=== PATIENT | female | born 1935 | race Hispanic/Latino ===

== ENCOUNTER 2017-10-17 07:53 | Observation (INO) | payer MEDICARE ==
[~2017-10-17 07:53] MED LIST: ANCEF ONE; ANTIBIOTIC OINT TP ONE; BACITRACIN ONE; CELESTONE SOLUSPAN IM ONE; MARCAINE 0.5% INFILTRATI ONE; NACL P/F VIAL (10 ML) 10 ML ONE; OMNIPAQUE 300 MG/50 ML (CATH LAB) IV ONE; XYLOCAINE 1% 20 mL INFILTRATI ONE; XYLOCAINE 1% 20 mL ONE
--- NOTE | 2017-10-17 08:38 | Anesthesia Consultation ---
Anesthesia Consult and Med Hx Date of service: 10/17/17 - Airway Anesthetic Teeth Evaluation: Good, Partials ROM Head & Neck: Adequate Mental/Hyoid Distance: Adequate Mallampati Class: Class II Intubation Access Assessment: Probably Good - Pulmonary Exam CTA: Yes - Cardiac Exam Cardiac Exam: RRR - Pre-Operative Health Status ASA Pre-Surgery Classification: ASA3 Proposed Anesthetic Plan: General - Pulmonary Hx Smoking: Yes (STOPPED X 15 YRS- 1 PPD X 25 YRS) SOB: Yes (SOB) COPD: Yes (INHALERS PRN , DAILY STEROIDS) Hx Pneumonia: Yes (RESOLVED) Hx Sleep Apnea: No (DENA PRE SCREEN HIGH RISK) - Cardiovascular System Hx Hypertension: Yes (X 10 YRS) Hx Coronary Artery Disease: Yes Hx Heart Attack/AMI: No Hx Angina: No Hx Percutaneous Transluminal Coronary Angioplasty (PTCA): No Hx Cardia Arrhythmia: No Hx Pacemaker: No Hx Internal Defibrillator: No Hx Valvular Heart Disease: No Hx Heart Murmur: No Hx Peripheral Vascular Disease: No - Central Nervous System 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
[2017-10-17] MEDS ORDERED: METHYLENE BLUE ONE (08:44)
[2017-10-17] MEDS ORDERED: NACL ONE (08:45)
[2017-10-17] MEDS ORDERED: VERSED IV NR (09:00)
[2017-10-17] MEDS ORDERED: LACTATED RINGERS 1,000 ML IV SCH (09:00)
[2017-10-17] MEDS ORDERED: XYLOCAINE MPF 2% ONE ×2 (09:01→09:03)
[2017-10-17] MEDS ORDERED: QUELICIN ONE (09:02)
[2017-10-17] MEDS ORDERED: DIPRIVAN 10 MG/ML IV ONE ×3 (09:03)
[2017-10-17] MEDS ORDERED: DILAUDID ONE (09:15)
--- NOTE | 2017-10-17 09:30 | Anesthesia Day of Surgery ---
Anesthesia Day of Surgery - Day of Surgery Patient Examined: Yes Patient H&P Reviewed: Yes Patient is NPO: Yes Beta Blockers: Yes Pulmonary Clearance: Yes
--- NOTE | 2017-10-17 09:38 | Short Stay Summary ---
Short Stay Documentation Date of service: 10/15/17 Narrative H&P: 81-year-old female with history of severe osteoporosis and multiple pathologic compression fractures. Patient underwent vertebral augmentation for treatment of senile burst fracture of L1, with resultant bone cement leakage on right into the ventral epidural space and right neural foramen resulting in severe compression of the right L1 nerve root. Patient is undergone multiple injections without sustained pain relief. She is poorly tolerant of opioid pain medications. Pain is been intractable and severe. She now presents for minimally invasive right L1-2 foraminotomy were right L1 nerve root decompression. - History Principal diagnosis: lumbar spinal stenosis at L1-2 with severe right neural foraminal stenosis H&P: obtained from office Past Medical History: COPD, GERD, hypertension Past Surgical History: cholecystectomy, Other (Vertebral augmentation of T12, L1 and L2) Social history: - Allergies and Medications Current Medications: Allergies No Known Allergies Allergy (Verified 08/29/17 10:30) Home Medications Medication Instructions Recorded Confirmed Last Taken Type Aspirin EC [Aspirin Enteric Coated 81 mg PO QDAY 08/29/17 10/15/17 Unknown History TAB] ALPRAZolam [Xanax TAB] 0.25 mg PO TID PRN 09/10/17 10/15/17 Unknown History Amlodipine Besylate [Norvasc] 5 mg PO DAILY 09/10/17 10/15/17 Unknown History Arformoterol Nebu [Brovana Nebu] 15 mcg IH Q12HR 09/10/17 10/15/17 Unknown History Budesonide [Pulmicort] 0.25 mg IH Q12HR 09/10/17 10/15/17 Unknown History Carvedilol [Coreg] 12.5 mg PO BID 09/10/17 10/15/17 Unknown History Citalopram [celeXA] 20 mg PO QDAY 09/10/17 10/15/17 Unknown History Duloxetine HCl [Cymbalta] 60 mg PO DAILY 09/10/17 10/15/17 Unknown History Ipratropium [Atrovent] 0.5 mg IH Q8HRT 09/10/17 10/15/17 Unknown History Lansoprazole [Prevacid] 30 mg PO BID 09/10/17 10/15/17 Unknown History Meclizine [Antivert] 12.5 mg PO BID PRN 09/10/17 10/15/17 Unknown History Ondansetron [Zofran TAB] 4 mg PO Q8HR PRN 09/10/17 10/15/17 Unknown History Prednisone [predniSONE (Brenda) ER 5 mg PO QDAY 09/10/17 10/15/17 Unknown History TAB] Sucralfate [Carafate] 2 gm PO BID 09/10/17 10/15/17 Unknown History Vit A/Vit C/Vit E/Zinc/Copper 1 each PO DAILY 09/10/17 10/15/17 Unknown History [Icaps Areds Formula Tablet] cloNIDine [Catapres] 0.1 mg PO PRN PRN 09/10/17 10/15/17 Unknown History oxyCODONE [Roxicodone] 5 mg PO QID 09/10/17 10/15/17 Unknown History Active Medications Lactated Ringer's (Lactated Ringers) 1,000 mls @ 75 mls/hr IV DIRECT SRINATH Last Admin: 10/17/17 09:12 Dose: 75 mls/hr Midazolam HCl (Versed) 2 mg IV PREOP NR Stop: 10/17/17 23:59 Last Admin: 10/17/17 09:24 Dose: 1 mg - Physical exam General appearance: no acute distress HEENT: Atraumatic, PERRLA, EOMI Lungs: Clear to auscultation Breasts: deferred Heart: Regular rate, No murmurs Gastrointestinal: normal Female Genitourinary: deferred Rectal Exam: deferred Extremities: no ischemia, pulses intact, No edema Neurological: Normal speech, Strength at 5/5 X4 ext (right iliopsoas strength 3/ 5), Normal tone, Sensation intact (my decrease sensation to light touch and right L1 dermatome), Cranial nerves 3-12 NL - Brief post op/procedure progress note Date of procedure: 10/17/17 Pre-op diagnosis: lumbar spinal stenosis L1-2 w/o neurogenic claudication; right L1 radiculop Post-op diagnosis: same Anesthesia: GETA Estimated blood loss: other (10 mL) Pathology: none Condition: stable Short Stay Discharge Plan Follow up with: AISHA MAO [Primary Care Provider] - 7 Days
[2017-10-17] MEDS ORDERED: ANCEF/STERILE WATER 2 GM/20 ML IV NR (09:40)
[2017-10-17] MEDS ORDERED: ePHEDrine SULFATE ONE (10:03)
[2017-10-17] MEDS ORDERED: AMIDATE IV ONE (11:11)
[2017-10-17] MEDS ORDERED: BACITRACIN IR ONE (11:11)
[2017-10-17] MEDS ORDERED: DECADRON ONE (12:18)
[2017-10-17] MEDS ORDERED: CELESTONE SOLUSPAN IM ONE ×2 (14:14→15:30)
[2017-10-17] MEDS ORDERED: OMNIPAQUE 300 MG/50 ML (CATH LAB) IV ONE (15:30)
[2017-10-17] MEDS ORDERED: XYLOCAINE 1% 20 mL INFILTRATI ONE (15:30)
[2017-10-17] MEDS ORDERED: MARCAINE 0.5% INFILTRATI ONE (15:30)
[2017-10-17] MEDS ORDERED: ZOFRAN PO PRN (16:28)
[2017-10-17] MEDS ORDERED: XANAX PO PRN (16:28)
[2017-10-17] MEDS: DILAUDID IV PRN ×4 (16:46→17:24)
[2017-10-17] MEDS ORDERED: CATAPRES PO PRN (16:49)
[2017-10-17] MEDS ORDERED: ATROVENT IH ONE (16:59)
[2017-10-17] MEDS ORDERED: NORVASC PO SCH (17:00)
--- NOTE | 2017-10-17 18:28 | Post Anesthesia Evaluation ---
- Post Anesthesia Evaluation Patient Participated: Yes Airway Patent: Yes Stable Respiratory Function: Yes Nausea/Vomiting: No Temp > 96.8F: Yes Pain Manageable: Yes Adequeate Hydration: Yes Anesthesia Complications: No Block Receding Appropriately: Not Applicable
[2017-10-17] MEDS: ROXICODONE PO SCH (19:44)
[2017-10-17] MEDS: PULMICORT IH SCH (21:00)
[2017-10-17] MEDS: BROVANA NEBU IH SCH (21:01)
[2017-10-17] MEDS ORDERED: PROTONIX PO SCH (22:00)
[2017-10-17] MEDS: CARAFATE PO SCH (22:44)
[2017-10-17] MEDS: COREG PO SCH (22:48)
[2017-10-18] MEDS: BROVANA NEBU IH SCH (08:59)
[2017-10-18] MEDS: PULMICORT IH SCH ×2 (08:59→14:19)
[2017-10-18] MEDS: COREG PO SCH (09:25)
[2017-10-18] MEDS: CARAFATE PO SCH (09:25)
[2017-10-18] MEDS: ROXICODONE PO SCH ×2 (09:26)
[2017-10-18] MEDS ORDERED: CYMBALTA PO SCH (10:00)
[2017-10-18] MEDS ORDERED: HALFPRIN EC PO SCH (10:00)
[2017-10-18] MEDS ORDERED: celeXA PO SCH (10:00)
--- NOTE | 2017-10-18 10:36 | XRay Report ---
AP AND LATERAL LUMBOSACRAL SPINE: History: Spinal stenosis. AP and lateral fluoroscopic images of the thoracolumbar region were obtained during surgery. Advanced multilevel degenerative changes and mild scoliosis are evident. Kyphoplasty changes are suspected from levels T11-L1. Foraminotomy was performed at L1-2. Please correlate with procedural report. IMPRESSION: Scoliosis and degenerative changes. Surgical changes as described.
[2017-10-18 11:49] VITALS: BP 118/54
--- NOTE | 2017-10-18 13:41 | Progress Note ---
Assessment and Plan 1. Discharge to home under her care of patient's daughters. 2. Continue oxycodone 5 mg every 6 hours as needed for pain. 3. Begin prednisone 10 mg by mouth for 10 days then decrease to 5 mg daily. 4. Neurontin 100 mg 3 times a day. 5. Follow-up in office in 10 days. - Patient Problems (1) Lumbar canal stenosis Current Visit: Yes Status: Acute Qualifiers: Neurogenic claudication status: with neurogenic claudication Qualified Code (s): M48.062 - Spinal stenosis, lumbar region with neurogenic claudication (2) Lumbar radiculopathy, chronic Current Visit: Yes Status: Acute Subjective Date of service: 10/18/17 Principal diagnosis: lumbar spinal stenosis at L1-2 with severe right neural foraminal stenosis Interval history: The patient is postop day 1 following right L1-2 foraminotomy. She reports pain involving her right inguinal region and upper right thigh, in the same location as her pain preoperatively however she states the character is different. She has been up and ambulating with assistance with the physical therapist today. She denies any leg pain, numbness or weakness. No headaches, nausea or vomiting. Objective - Constitutional Vitals: Vital Signs - 12hr 10/18/17 10/18/17 10/18/17 03:48 05:55 07:41 Temperature 97.6 F 99.1 F Pulse Rate 89 89 Respiratory 20 20 20 Rate Blood Pressure 158/88 149/85 Blood Pressure 148/71 [Right] O2 Sat by Pulse 95 95 Oximetry 10/18/17 10/18/17 09:25 11:48 Temperature 98.0 F Pulse Rate 86 Respiratory 20 Rate Blood Pressure 148/71 Blood Pressure 118/54 [Right] O2 Sat by Pulse 95 Oximetry General appearance: Present: no acute distress - EENT Eyes: PERRL (mild lid edema on the right.) - Neck Neck: supple, normal ROM - Respiratory Respiratory effort: normal - Cardiovascular Rhythm: regular Extremities: no ischemia, No edema, abnormal (mild swelling of left forearm at site of previous IV that was removed following infiltration) - Gastrointestinal General gastrointestinal: Present: deferred - Genitourinary Female genitourinary: deferred - Musculoskeletal Musculoskeletal: strength equal bilaterally - Neurologic Neurologic: CNII-XII intact, moves all extremities - Psychiatric Psychiatric: appropriate mood/affect - Allied health notes Allied health notes reviewed: case management (arrangements to be made for home health physical therapy.)
[2017-10-18] MEDS ORDERED: ATROVENT IH SCH ×3 (14:00→17:00)
--- NOTE | 2017-10-18 14:32 | Operative Report ---
Operative Report Operative Report: Preoperative Diagnoses: 1. Chronic axial low back pain. 2. Chronic Lumbar radiculopathy. 3. Lumbar spinal stenosis and neurogenic claudication Postoperative diagnosis: 1. Chronic axial low back pain. 2. Chronic Lumbar radiculopathy. 3. Lumbar spinal stenosis and neurogenic claudication Procedure: 1. Minimally invasive right L1-2 foraminotomy. 2. Decompression of central spinal stenosis and lateral recess stenosis on the right. 3. Right L1-2 transforaminal epidural corticosteroid injection. Surgeon: Derrek Escobedo Anesthesia: General endotracheal. Estimated blood loss: 15 mL Complications: None. Neuromonitoring: Continuous SSEP and EMG neuromonitoring was performed with intermittent MEP. Indication: The patient is a 81-year-old female with osteoporosis and multiple pathologic compression fractures. History of T12 senile burst fracture treated with vertebral augmentation resulting in bone cement extravasation on the right and to the lateral recess and right L1 to 2 neural foramen resulting in right L1 nerve root compression. Patient has chronic spinal stenosis at L1 S2 with neurogenic claudication and chronic right L1 radiculopathy. She presents for minimally invasive right L1-2 foraminotomy. Performed procedure: Following informed consent, the patient was brought to the operative suite and general endotracheal anesthesia was induced. Neuro monitoring leads were applied to the lower extremities laterally. EMG, SSEP and MEP neuro monitoring was performed throughout the procedure. The patient was then carefully turned onto the operative table in the prone position. All pressure points were meticulously padded. She received 2 g of cefazolin intravenously for antibiotic prophylaxis. The back was sterilely prepped and draped in routine fashion. Attention was initially turned to the upper lumbar spine at L1. Fluoroscopy revealed chronic compression fractures of T12, L1 and L2 with posterior bone displacement into the central canal at L1 along with methylmethacrylate extravasation on the right, extending into the neural foramen. A skin incision was made with a #15 blade. A tract was then dilated to the lateral aspect of the right L1 S2 neural foramen and a tubular retractor was placed allowing for direct visualization. Moderate fibrotic tissue was encountered and removed. This allowed for visualization of methylmethacrylate extending into the foramen. The foramen was found to be severely stenotic. Following control bleeding with bipolar electrocautery, with endoscopic assistance, the high-speed chelsey tipped drill was utilized and the bone cement was carefully drilled out, with the further on and bone cement removal within the lateral aspect of the central canal taking care to avoid contact with the dura. Attention was then asked turned toward the superior aspect of the neural foramen. The L1 nerve root was visualized and noted to be discolored consistent with chronic inflammation and irritation secondary to compression. Due to the proximity of the bone cement adjacent to the L1 nerve root, great care was taken to avoid any direct contact with the nerve root. The foramen was inspected and appeared to be satisfactorily decompressed. Additional hemostatic material was placed into the bony defect and hemostasis was obtained and found to be satisfactory. This was followed by removal of the instrumentation and placement of a 18-gauge needle into the neural foramen under fluoroscopic visualization. Aspiration was negative for blood and CSF. Contrast was injected to confirm position. This is followed by injection of 12 mg of betamethasone mixed with 2 mL of 0.5% bupivacaine without epinephrine. The needle was withdrawn. The skin incision was then closed with interrupted subcutaneous 3-0 Vicryl sutures and Dermabond was applied as a skin sealant. Sterile dressing was applied. No abnormal activity was identified during the procedure with continuous neuro monitoring as detailed above. The patient was then carefully removed to a gurney, extubated and taken to the recovery room where she was noted to be in stable cardiopulmonary neurologic condition. Disposition: The patient was admitted for 23 observation for postoperative pain control.
== END 2017-10-18 14:18 | disposition home health service (06) ==
LOC: OR 07:53 → 3B-SURG 16:24
PROVIDERS: ADMIT Radiology Diagnostic Radiology; ATTEND Radiology Diagnostic Radiology
DX: M48.062 Spinal stenosis, lumbar region with neurogenic claudication (principal); J44.9 Chronic obstructive pulmonary disease, unspecified; K21.9 Gastro-esophageal reflux disease without esophagitis; I10 Essential (primary) hypertension
CPT/HCPCS: 63047; 64483; 72100; 88304; 94640; 96372; 96374; 96375; 97116; 97161; G0378; G8978; G8979; J0330; J0690; J0702; J1100; J1170; J2250; J2704; J7120; Q9968; 88311